=== PATIENT | male | born 1970 | race Caucasian/White ===

== ENCOUNTER 2019-10-18 07:05 | Day surgery (SDC) | payer BC ==
[~2019-10-18] VITALS: Ht 175.3 cm; Wt 85.7 kg
[~2019-10-18 07:05] MED LIST: FENOFIBRATE40 MG PO; KAPSPARGO SPRIN50 MG PO; LEXAPRO10 MG PO; LISINOPRIL20 MG PO; PANTOPRAZOLE SO40 MG PO
--- NOTE | 2019-10-18 07:56 | NUR ---
RECHECKED VS. IV PATENT. PT IS A LITTLE CALMER NOW.
--- NOTE | 2019-10-18 10:09 | NUR ---
10/18/19 1009 Sheets,Blanca 0894 PT ARRIVED TO PACU, VSS, PT WAKES EASILY AND DENIES PAIN AND NAUSEA. PT REORIENTED TO PACU AND ENCOURAGED TO PASS GAS/AIR. 0850 HOB INCREASED AND PT SIPPING WATER. VSS. PT WAKES OFF AND ON AND TALKING TO RN. PT PULLING CAR UP. 0855 PT GETTING DRESSED AND DENIES COCNERNS. 0905 DC INSTRUCTIONS GIVEN AND ALL QUESTIONS ANSWERED.
--- NOTE | 2019-10-19 05:40 | OR ---
[facility] [address], [place] [address] Signed DATE OF OPERATION: 10/18/2019 SURGEON: Yudi Lawson MD PREOPERATIVE DIAGNOSIS: Screening. POSTOPERATIVE DIAGNOSES: 1. Minimal to moderate sigmoid diverticulosis. 2. Minimal internal hemorrhoid x1. PROCEDURE PERFORMED: Colonoscopy without biopsy. ESTIMATED BLOOD LOSS: None. INDICATIONS: Jacy is a 48-year-old gentleman who was asked to see me for his initial screening colonoscopy. He has no lower GI complaints. There is no family history of colon cancer or polyps. I gave Jacy a pamphlet in the office on colonoscopy. He understands the nature of the test along with the risks including, but not limited to gas bloating, crampy abdominal pain, bleeding, perforation requiring surgery, and missed diagnosis. He also understands the need for IV conscious sedation. He had expressed understanding and wished to proceed. PROCEDURE NOTE: Jacy was taken into our endoscopy suite and placed in the left lateral decubitus position. He was given a total of 7 mg of Versed and 150 mcg of fentanyl to cover the case. A digital rectal exam was performed and this was unremarkable. The adult colonoscope was introduced and advanced all around into the cecum under direct visualization of camera without difficulty. His prep was good. We could easily see the appendiceal orifice and the ileocecal valve. The scope was slowly withdrawn. We took pictures throughout for photodocumentation. He had a few diverticula in the sigmoid colon. They were minimal to moderate in size, minimal to moderate in number, and scattered about. The rectum itself was unremarkable. Upon retroflexion of the scope, he had just a small single internal hemorrhoid column. After this, the gas was suctioned out and colonoscope removed. Jacy tolerated the procedure quite well. RECOMMENDATIONS: Electronically Signed By: YUDI LAWSON MD 10/19/19 0540 PATIENT NAME: JACY NG OPERATIVE REPORT DATE OF : 66 REPORT #: [id number] PHYSICIAN: YUDI LAWSON MD PCP: OLGA MARTIN REPORT IS CONFIDENTIAL AND NOT TO BE RELEASED WITHOUT AUTHORIZATION [address] [address] Signed Jacy can follow up in 10 years for repeat colonoscopy. Yudi Lawson MD ALB/MODL /[id number] cc: MD Olga Mike PA-C Copies: YUID LAWSON MD, ERIKA PAC ~ Electronically Signed By: YUDI LAWSON MD 10/19/19 0540 PATIENT NAME: JACY NG OPERATIVE REPORT DATE OF : 66 REPORT #: [id number] PHYSICIAN: YUDI LAWSON MD PCP: OLGA MARTIN PAC REPORT IS CONFIDENTIAL AND NOT TO BE RELEASED WITHOUT AUTHORIZATION
== END 2019-10-18 09:09 | disposition home or self-care (01) ==
LOC: DS 07:05 → OPS 07:05 → DS 08:15 → OPS 09:09
PROVIDERS: Colon & Rectal Surgery
PROC: 0DJD8ZZ Inspection of Lower Intestinal Tract, Via Natural or Artificial Opening Endoscopic (ICD-10-PCS; principal; 2019-10-18 08:15)
DX: Z12.11 Encounter for screening for malignant neoplasm of colon (principal); K64.8 Other hemorrhoids; K57.30 Diverticulosis of large intestine without perforation or abscess without bleeding; I10 Essential (primary) hypertension; F41.9 Anxiety disorder, unspecified; Z79.899 Other long term (current) drug therapy
CPT/HCPCS: 99153; G0500; J2250; J3010; J7121

== ENCOUNTER 2020-06-25 13:49 | Emergency (ER) | payer OTHER, BC ==
[~2020-06-25] VITALS: Ht 175.3 cm; Wt 85.7 kg
--- OUTSIDE RECORDS SUMMARY | ~2020-06-25 | XMS | Encounter Summary ---
Demographics + + + | Address | [address] | | | [place] [address] | + + + | Home Phone | | + + + | Preferred Language | Unknown | + + + | Marital Status | | + + + | Amish Affiliation | 1013 | + + + | Race | White | + + + | Ethnic Group | Not or | + + + Author + + + | Author | [facility] | | | and [place] | + + + | Organization | [facility] | | | and [place] | + + + | Address | Unknown | + + + | Phone | Unavailable | + + + Care Team Providers + +------+ + | Care Dock Worker Name | Role | Phone | + +------+ + | Harsha Sharma MD | PCP | | + +------+ + Encounter Details +--------+ + + + + | Date | Type | Department | Care Team | Description | +--------+ + + + + | 09/20/ | Orders Only | [facility] | Conversion | | | 2018 | | CONVERSION DEP [address] | Transaction, | | | | | [address] | Provider Unknown | | | | | [place], [place] | [phone] | | | | | [address] | | | | | | [phone] | | | +--------+ + + + + Social History + +-------+ +--------+------+ | Tobacco Use | Types | Packs/Day | Years | Date | | | | | Used | | + +-------+ +--------+------+ | Never Smoker | | | | | + +-------+ +--------+------+ + + + | Sex Assigned at | Date Recorded | | | | + + + | Not on file | | + + + documented as of this encounter Plan of Treatment Not on filedocumented as of this encounter Visit Diagnoses Not on filedocumented in this encounter"
--- OUTSIDE RECORDS SUMMARY | ~2020-06-25 | XMS | Encounter Summary ---
Demographics + + + | Address | [address] | | | [place] [address] | + + + | Home Phone | | + + + | Preferred Language | Unknown | + + + | Marital Status | | + + + | Amish Affiliation | 1013 | + + + | Race | White | + + + | Ethnic Group | Not or | + + + Author + + + | Author | [facility] | | | and [place] | + + + | Organization | [facility] | | | and [place] | + + + | Address | Unknown | + + + | Phone | Unavailable | + + + Care Team Providers + +------+ + | Care Insurance Premium Auditor Name | Role | Phone | + +------+ + | Harsha Sharma MD | PCP | | + +------+ + Encounter Details +--------+ + + + + | Date | Type | Department | Care Team | Description | +--------+ + + + + | 12/06/ | Orders Only | [facility] | Soumya Vega, | | | 2019 | | NEUROLOGY [address] | [address] | | | | | [address] | [facility] | | | | | [place], [place] | [place] [address] | | | | | [address] | [phone] | | | | | [phone] | | | +--------+ + + + [...]
--- OUTSIDE RECORDS SUMMARY | ~2020-06-25 | XMS | Encounter Summary ---
Demographics + + + | Address | [address] | | | [place] [address] | + + + | Home Phone | | + + + | Preferred Language | Unknown | + + + | Marital Status | | + + + | Church Affiliation | 1013 | + + + | Race | White | + + + | Ethnic Group | Not or | + + + Author + + + | Author | [facility] | | | and [place] | + + + | Organization | [facility] | | | and [place] | + + + | Address | Unknown | + + + | Phone | Unavailable | + + + Care Team Providers + +------+ + | Care Fixed Route Bus Operator Name | Role | Phone | + +------+ + PCP | Unavailable | + +------+ + Encounter Details +--------+ + + + + | Date | Type | Department | Care Team | Description | +--------+ + + + + | 09/15/ | Hospital | [facility] | Conversion | Pain | | 2017 | Encounter | CONVERSION [address]P [address] | Transaction, | | | | | [address] | Provider Unknown | | | | | [place] | [phone] | | | | | [address] | | | | | | [phone] | | | +--------+ + + + + Social History + +-------+ +--------+------+ | Tobacco Use | Types | Packs/Day | Years | Date | | | | | Used | | + +-------+ +--------+------+ | Never Assessed | | | | | + +-------+ +--------+------+ + + + | Sex Assigned at | Date Recorded | | | | + + + | Not on file | | + + + documented as of this encounter Medications at Time of Discharge + + + +---------+ + + | Medication | Sig | Dispensed | Refills | Start | End Date | | | | | | Date | | + + + +---------+ + + | amLODIPine | | | 0 | 07/23/20 | | | (NORVASC) 5 mg | | | | 17 | | | tablet | | | | | | + + + +---------+ + + | aspirin (ASPIRIN | Take 81 mg by mouth | | 0 | 04/13/20 | | | LOW DOSE) 81 MG | daily. | | | 11 | | | tablet | | | | | | + + + +---------+ + + | atorvaSTATin | | | 0 | 08/21/20 | | | (LIPITOR) 20 mg | | | | 17 | | | tablet | | | | | | + + + +---------+ + + | buPROPion | | | 0 | 09/10/20 | | | (WELLBUTRIN SR) 100 | | | | 17 | | | mg 12 hr tablet | | | | | | + + + +---------+ + + | busPIRone (BUSPAR) | | | 0 | 09/10/20 | | | 5 mg tablet | | | | 17 | | + + + +---------+ + + | clonazePAM | | | 0 | 08/10/20 | | | (KLONOPIN) 0.5 mg | | | | 17 | | | tablet | | | | | | + + + +---------+ + + | lisinopril | Take 40 mg by mouth | | 0 | 12/06/19 | | | (PRINIVIL,ZESTRIL) | daily. | | | 12 | | | 40 MG tablet | Indications: High | | | | | | | Blood Pressure | | | | | + + + +---------+ + + | pantoprazole | | | 0 | 08/21/20 | | | (PROTONIX) 40 mg | | | | 17 | | | tablet | | | | | | + + + +---------+ + + documented as of this encounter Plan of Treatment Not on filedocumented as of this encounter Procedures + +--------+ + + + | Procedure Name | Priori | Date/Time | Associated Diagnosis | Comments | | | ty | | | | + +--------+ + + + | CT MAXILLOFACIAL WO | Routin | 10/13/2012 | | Results for this | | CONTRAST | e | 1:09 PM | | procedure are in the | | | | PST | | results section. | + +--------+ + + + documented in this encounter Results CT Maxillofacial wo Contrast (10/13/2012 1:09 PM PST) + + | Specimen | + + | | + + + + + | Narrative | Performed At | + + + | This is a non-reportable procedure without a radiologist report and | | | is used for image storage only | | + + + + + | Procedure Note | + + | Emre Crowell - 05/03/2019 2:43 AM PDT This is a non-reportable procedure | | without a radiologist report and isused for image storage only | + + documented in this encounter Visit Diagnoses + + | Diagnosis | + + | Pain Generalized pain | + + documented in this encounter"
--- OUTSIDE RECORDS SUMMARY | ~2020-06-25 | XMS | Encounter Summary ---
Demographics + + + | Address | [address] | | | [place] [address] | + + + | Home Phone | | + + + | Preferred Language | Unknown | + + + | Marital Status | | + + + | Yarsanism Affiliation | 1013 | + + + | Race | White | + + + | Ethnic Group | Not or | + + + Author + + + | Author | [facility] | | | and [place] | + + + | Organization | [facility] | | | and [place] | + + + | Address | Unknown | + + + | Phone | Unavailable | + + + Care Team Providers + +------+ + | Care Poultry Breeder Name | Role | Phone | + +------+ + PCP | Unavailable | + +------+ + Encounter Details +--------+ + + + + | Date | Type | Department | Care Team | Description | +--------+ + + + + | 09/15/ | Hospital | [facility] | Conversion | Pain | | 2017 | Encounter | CONVERSION DEP [address] | Transaction, | | | | | [address] | Provider Unknown | | | | | [place] | [phone] | | | | | [address] | | | | | | [phone] | | | +--------+ + + + [...] + +--------+ + + + | CT HEAD WO CONTRAST | Routin | 05/18/2017 | | Results for this | | | e | 1:08 PM | | procedure are in the | | | | PDT | | results section. | + +--------+ + + + documented in this encounter Results CT Head wo Contrast (05/18/2017 1:08 PM PDT) + + | Specimen | + + [...]
--- OUTSIDE RECORDS SUMMARY | ~2020-06-25 | XMS | Encounter Summary ---
Demographics + + + | Address | [address] | | | [place] [address] | + + + | Home Phone | | + + + | Preferred Language | Unknown | + + + | Marital Status | | + + + | Synagogue Affiliation | 1013 | + + + | Race | White | + + + | Ethnic Group | Not or | + + + Author + + + | Author | [facility] | | | and [place] | + + + | Organization | [facility] | | | and [place] | + + + | Address | Unknown | + + + | Phone | Unavailable | + + + Care Team Providers + +------+ + | Care Side Puller Name | Role | Phone | + +------+ + PCP | Unavailable | + +------+ + Encounter Details +--------+ + + + + | Date | Type | Department | Care Team | Description | +--------+ + + + + | 12/12/ | Hospital | [facility] | Alejandra Sams, | Hyposmolality | | 2009 | Encounter | CONVERSION DEP [address] | MD [address] | | | | | [address] | [place] [address] | | | | | [place], [place] | [phone] | | | | | [address] | | | | | | [phone] | | | +--------+ + + + [...] | + +--------+ + + + | MRI BRAIN WO | Routin | 12/12/2009 | | Results for this | | CONTRAST | e | 12:12 PM | | procedure are in the | | | | PDT | | results section. | + +--------+ + + + documented in this encounter Results MRI Brain wo Contrast (12/12/2009 12:12 PM PDT) + + | Specimen | + + | | + + + + + | Narrative | Performed At | + + + | [facility] | | | [facility] [address] | | | , | | | [id number]/RADIOLOGY Patient Name: JACY NG Date of | | | : 1970 Medical Record: [id number] Account: | | | [id number] O/P// Exam Date/Time: | | | 12/12/2009 11:30 A Ordering Provider: ALEJANDRA SAMS Order | | | Detail: 980 / / OMR Exam Description: MRI BRAIN UNENHANCED | | | | | | MRI BRAIN UNENHANCED 12/12/2009 HISTORY A 39-year-old male with | | | headaches, dizziness, and gait imbalance. The patient also has | | | reported weakness of his arms and legs. TECHNIQUE Utilizing a 1.5 | | | Mary MRI unit, standard multiplanar noncontrast sequences through | | | the brain were done. COMPARISON None. FINDINGS No | | | intracranial infarct, hemorrhage, mass, or hydrocephalus is found. A | | | solitary juxtacortical high FLAIR and T2 signal focus seen within the | | | right parietal lobe white matter, measuring 4 mm, image 21, series 7, | | | and image 8, series 3, nonspecific. The corpus callosum, midbrain, | | | danisha, and brainstem appear normal. No cerebellar abnormality is | | | detected. The upper cervical spinal cord signal is noted. Mild | | | bilateral maxillary sinus mucosal thickening is found with small | | | bilateral accompanying maxillary sinus mucus retention cysts, | | | numbering 2 on the right and 1 on the left, largest measuring 12 mm | | | on the left. Trace bilateral mastoid fluid is found. No bone lesions | | | are identified. The visualized intracranial vascular flow voids | | | appear normal. Mild mucosal thickening is also seen involving | | | scattered bilateral ethmoid air cells. IMPRESSION 1. Tiny | | | nonspecific juxtacortical high FLAIR signal focus within the left | | | parietal lobe white matter. This could be related to a migraine | | | headache focus in this patient with a history of migraines. A tiny | | | focus of small vessel ischemic gliosis is another explanation. | | | Clinically correlate for other ricci-white matter disease etiologies, | | | including Lyme disease, auto-immune related vasculitis white | | | matter change, or ADEM, all thought very unlikely. Note this | | | white matter disease pattern does not meet the revised Fowler | | | criteria for multiple sclerosis. 2. Mild bilateral maxillary and | | | ethmoid sinus disease, chronic, as above. Read by | | | SHAN JAVED MD 12/12/2009 01:10 P Electronically Signed by SHAN | | | Nathalia JAVED MD 12/13/2009 09:09 P P DT: | | | 12/13/2009 03:05 P GRACIELA/[facility]/[id number]/ cc: ALEJANDRA SAMS MD | | | SHAN JAVED MD | | + + + + + | Procedure Note | + + | Emre Crowell - 05/13/2019 4:02 PM PDT | | [facility] | | [facility] [address] | | , | | | | [id number]/RADIOLOGY | | | | Patient Name: JACY NG | | Date of : 1970 | | Medical Record: [id number] | | Account: [id number] | | O/P// | | | | | | Exam Date/Time: 12/12/2009 11:30 A | | Ordering Provider: ALEJANDRA SAMS | | Order Detail: 980 / / OMR | | Exam Description: MRI BRAIN UNENHANCED | | | | MRI BRAIN UNENHANCED 12/12/2009 | | | | HISTORY | | A 39-year-old male with headaches, dizziness, and gait imbalance. The | | patient also has reported weakness of his arms and legs. | | | | TECHNIQUE | | Utilizing a 1.5 Mary MRI unit, standard multiplanar noncontrast | | sequences through the brain were done. | | | | COMPARISON | | None. | | | | FINDINGS | | No intracranial infarct, hemorrhage, mass, or hydrocephalus is found. A | | solitary juxtacortical high FLAIR and T2 signal focus seen within the | | right parietal lobe white matter, measuring 4 mm, image 21, series 7, | | and image 8, series 3, nonspecific. The corpus callosum, midbrain, danisha, | | and brainstem appear normal. No cerebellar abnormality is detected. The | | upper cervical spinal cord signal is noted. Mild bilateral maxillary | | sinus mucosal thickening is found with small bilateral accompanying | | maxillary sinus mucus retention cysts, numbering 2 on the right and 1 on | | the left, largest measuring 12 mm on the left. Trace bilateral mastoid | | fluid is found. No bone lesions are identified. The visualized | | intracranial vascular flow voids appear normal. | | | | Mild mucosal thickening is also seen involving scattered bilateral | | ethmoid air cells. | | | | IMPRESSION | | 1. Tiny nonspecific juxtacortical high FLAIR signal focus within the | | left parietal lobe white matter. This could be related to a migraine | | headache focus in this patient with a history of migraines. A tiny | | focus of small vessel ischemic gliosis is another explanation. | | Clinically correlate for other ricci-white matter disease etiologies, | | including Lyme disease, auto-immune related vasculitis white matter | | change, or ADEM, all thought very unlikely. Note this white matter | | disease pattern does not meet the revised Fowler criteria for | | multiple sclerosis. | | 2. Mild bilateral maxillary and ethmoid sinus disease, chronic, as | | above. | | | | | | | | Read by | | SHAN JAVED MD 12/12/2009 01:10 P | | Electronically Signed by | | SHAN JAVED MD 12/13/2009 09:09 P | | | | P | | P | | GRACIELA/subhash/[id number]/ | | cc: ALEJANDRA SAMS MD | | SHAN JAVED MD | + + documented in this encounter Visit Diagnoses + + | Diagnosis | + + | Hyposmolality Hyposmolality and/or hyponatremia | + + documented in this encounter"
--- OUTSIDE RECORDS SUMMARY | ~2020-06-25 | XMS | Clinical Summary ---
Demographics + + + | Address | [address] | | | [place] [address] | + + + | Home Phone | | + + + | Preferred Language | Unknown | + + + | Marital Status | | + + + | Yarsani Affiliation | 1013 | + + + | Race | White | + + + | Ethnic Group | Not or | + + + Author + + + | Author | [facility] | | | and [place] | + + + | Organization | [facility] | | | and [place] | + + + | Address | Unknown | + + + | Phone | Unavailable | + + + Care Team Providers + +------+ + | Care Spool Cleaner Name | Role | Phone | + +------+ + | Harsha Sharma MD | PCP | | + +------+ + Allergies No Known Allergies Medications + + + +---------+------+------+-------+ | Medication | Sig | Dispensed | Refills | Star | End | Statu | | | | | | t | Date | s | | | | | | Date | | | + + + +---------+------+------+-------+ | lisinopril | Take 40 mg by mouth | | 0 | 03/1 | | Activ | | (PRINIVIL,ZESTRIL) | daily. | | | 9/20 | | e | | 40 MG tablet | Indications: High | | | 12 | | | | | Blood Pressure | | | | | | + + + +---------+------+------+-------+ | pantoprazole | | | 0 | 12/0 | | Activ | | (PROTONIX) 40 mg | | | | 3/20 | | e | | tablet | | | | 17 | | | + + + +---------+------+------+-------+ | clonazePAM | | | 0 | 11/2 | | Activ | | (KLONOPIN) 0.5 mg | | | | 2/20 | | e | | tablet | | | | 17 | | | + + + +---------+------+------+-------+ | busPIRone (BUSPAR) | | | 0 | 12/2 | | Activ | | 5 mg tablet | | | | 3/20 | | e | | | | | | 17 | | | + + + +---------+------+------+-------+ | buPROPion | | | 0 | 12/2 | | Activ | | (WELLBUTRIN SR) 100 | | | | 3/20 | | e | | mg 12 hr tablet | | | | 17 | | | + + + +---------+------+------+-------+ | atorvaSTATin | | | 0 | 12/0 | | Activ | | (LIPITOR) 20 mg | | | | 3/20 | | e | | tablet | | | | 17 | | | + + + +---------+------+------+-------+ | amLODIPine | | | 0 | 11/0 | | Activ | | (NORVASC) 5 mg | | | | 4/20 | | e | | tablet | | | | 17 | | | + + + +---------+------+------+-------+ | amitriptyline | take 2 tablets by | 60 | 0 | 03/2 | | Activ | | (ELAVIL) 10 mg | mouth every evening | tablet | | 0/20 | | e | | tablet | | | | 19 | | | + + + +---------+------+------+-------+ | aspirin (ASPIRIN | Take 81 mg by mouth | | 0 | 07/2 | | Activ | | LOW DOSE) 81 MG | daily. 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 | 05/17/2011 | | (PATRICIA-I) | | + + + | GERD (gastroesophageal reflux disease) | 04/13/2011 | + + + | Nondependent alcohol abuse, in remission | 04/13/2011 | + + + | Tobacco user | 04/13/2011 | + + + | Hypertension | 04/13/2011 | + + + | Hyperlipidemia | 04/13/2011 | + + + | Dizziness | 04/13/2011 | + + + | Esophageal motility disorder | 04/13/2011 | + + + Family History + + +------+ + | Medical History | Relation | Name | Comments | + + +------+ + | Stroke | Father | | | + + +------+ + | Stroke | Other | | | + + +------+ + + +------+--------+ + | Relation | Name | Status | Comments | + +------+--------+ + | Father | | | | + +------+--------+ + | Father | | | | + +------+--------+ + | Other | | | | + +------+--------+ + | Other | | | | + +------+--------+ + Social History + +-------+ +--------+------+ | [...] on file | | + + + Last Filed Vital Signs + + + + + | Vital Sign | Reading | Time Taken | Comments | + + + + + | Blood Pressure | 134/90 | 09/20/2017 2:17 PM | | | | | PST | | + + + + + | Pulse | 71 | 09/20/2017 2:17 PM | | | | | PST | | + + + + + | Temperature | - | - | | + + + + + | Respiratory Rate | - | - | | + + + + + | Oxygen Saturation | - | - | | + + + + + | Inhaled Oxygen | - | - | | | Concentration | | | | + + + + + | Weight | 84.6 kg (186 lb 8 | 09/20/2017 2:17 PM | | | | oz) | PST | | + + + + + | Height | 175.3 cm (5' 9") | 09/20/2017 2:17 PM | | | | | PST | | + + + + + | Body Mass Index | 27.54 | 09/20/2017 2:17 PM | | | | | PST | | + + + + + Plan of Treatment + + +-------+ + | Health Maintenance | Due Date | Last | Comments | | | | Done | | + + +-------+ + | Vaccine: | | | | | Dtap/Tdap/Td (1 - | 8 | | | | Tdap) | | | | + + +-------+ + | Vaccine: Zoster (1 | | | | | of 2) | 9 | | | + + +-------+ + | Vaccine: Influenza | | | | | (#1) | 0 | | | + + +-------+ + Results Not on filefrom Last 3 Months
--- OUTSIDE RECORDS SUMMARY | ~2020-06-25 | XMS | Encounter Summary ---
Demographics + + + | Address | [address] | | | [place] [address] | + + + | Home Phone | | + + + | Preferred Language | Unknown | + + + | Marital Status | | + + + | Amish Affiliation | 1013 | + + + | Race | White | + + + | Ethnic Group | Not or | + + + Author + + + | Author | [facility] | | | and [place] | + + + | Organization | [facility] | | | and [place] | + + + | Address | Unknown | + + + | Phone | Unavailable | + + + Care Team Providers + +------+ + | Care Bath Tester Name | Role | Phone | + +------+ + | Harsha Sharma MD | PCP | | + +------+ + Encounter Details +--------+ + + + + | Date | Type | Department | Care Team | Description | +--------+ + + + + | 04/13/ | Orders Only | [facility] | Conversion | | | 2010 | | CONVERSION DEP [address] | Transaction, | | | | | [address] | Provider Unknown | | | | | [place], [place] | [phone] | | | | | [address] | | | | | | [phone] | | | +--------+ + + + [...]
--- OUTSIDE RECORDS SUMMARY | ~2020-06-25 | XMS | Encounter Summary ---
Demographics + + + | Address | [address] | | | [place] [address] | + + + | Home Phone | | + + + | Preferred Language | Unknown | + + + | Marital Status | | + + + | Jainism Affiliation | 1013 | + + + | Race | White | + + + | Ethnic Group | Not or | + + + Author + + + | Author | [facility] | | | and [place] | + + + | Organization | [facility] | | | and [place] | + + + | Address | Unknown | + + + | Phone | Unavailable | + + + Care Team Providers + +------+ + | Care Casing Sewer Name | Role | Phone | + +------+ + | Harsha Sharma MD | PCP | | + +------+ + Encounter Details +--------+ + + + + | Date | Type | Department | Care Team | Description | +--------+ + + + + | 12/05/ | Orders Only | [facility] | Aníbal Hanson MD | | | 2011 | | [facility] | [address] | | | | | [address] | [place] [address] | | | | | [place] [address] | [phone] | | | | | [phone] | | | +--------+ + + + [...]
--- OUTSIDE RECORDS SUMMARY | ~2020-06-25 | XMS | Encounter Summary ---
Demographics + + + | Address | [address] | | | [place] [address] | + + + | Home Phone | | + + + | Preferred Language | Unknown | + + + | Marital Status | | + + + | Congregational Affiliation | 1013 | + + + | Race | White | + + + | Ethnic Group | Not or | + + + Author + + + | Author | [facility] | | | and [place] | + + + | Organization | [facility] | | | and [place] | + + + | Address | Unknown | + + + | Phone | Unavailable | + + + Care Team Providers + +------+ + | Care Painting Supervisor Name | Role | Phone | + +------+ + PCP | Unavailable | + +------+ + Encounter Details +--------+ + + + + | Date | Type | Department | Care Team | Description | +--------+ + + + + | 03/29/ | Hospital | [facility] | Thierno Mukherjee, | Unspecified chest | | 2010 - | Encounter | CONVERSION [address] | MD [address] | pain | | | | [address] | [place], [place] | | | 03/30/ | | [place], [place] | [address] | | | 2010 | | [address] | [phone] | | | | | [phone] | | | +--------+ + + + [...] | + +--------+ + + + | NM MYOCARDIAL | Routin | 03/30/2011 | | Results for this | | PERFUSION MULT SPECT | e | 11:53 AM | | procedure are in the | | | | PDT | | results section. | + +--------+ + + + | ECHO COMPLETE | Routin | 03/30/2011 | | Results for this | | | e | 7:02 AM | | procedure are in the | | | | PDT | | results section. | + +--------+ + + + | XR CHEST 2 VIEWS | Routin | 03/29/2011 | | Results for this | | | e | 9:05 PM | | procedure are in the | | | | PDT | | results section. | + +--------+ + + + documented in this encounter Results NM Myocardial Perfusion Mult SPECT (03/30/2011 11:53 AM PDT) + + | Specimen | + + | | + + + + + | Narrative | Performed At | + + + [facility] [id number] Ph: | | | Patient Name: TRENT NG Date of : | | | 1970 Medical Record: [id number] Account: [id number] | | | Exam Date/Time: 03/30/2011 10:00 Ordering | | | Physician: THIERNO MUKHERJEE Order Detail: [id number] Exam Description: | | | NM MYOCARDIAL GATED S+R | | | TRENT | | | R HERNANDEZ 1970 NM MYOCARDIAL GATED S+R 03/30/2011 10:00 AM | | | HISTORY: Chest pain COMPARISON: None. TECHNIQUE: A same | | | day protocol was used. For the resting portion of the study the | | | patient was injected intravenously with 10.2 mCi of technetium 99m | | | labeled Myoview. Gated SPECT imaging was performed in the supine | | | position. The patient was then stressed on a treadmill according | | | to the Khai protocol for 12:11 achieving 10.6 METs. Resting heart | | | rate rox from 64 beats/min to 131 beats/min which was 73% of the | | | maximum age-predicted heart rate. Due to fatigue, the patient was | | | pharmacologically stressed with 0.4-mg of Regadenoson. At the point | | | of maximum stress, the patient received 39 mCi of technetium 99m | | | labeled Myoview intravenously. Gated SPECT images were acquired in | | | the prone and supine positions. FINDINGS: There are no fixed or | | | reversible areas of perfusion abnormality demonstrated. No | | | dilatation of the left ventricle is present. Normal wall motion and | | | contractility is demonstrated. The following functional data was | | | obtained: End-diastolic volume: 102 mL End-systolic volume: 35 mL | | | Ejection fraction: 66% IMPRESSION: 1. Normal myocardial | | | perfusion study. 2. No evidence of exercise induced ischemia or | | | infarct. 3. Left ventricular ejection fraction is calculated at | | | 66%. | | | 11:39 AM | | + + + + + | Procedure Note | + + | Emre Crowell Conversion - 05/12/2019 1:15 PM PDT | | [facility] | | [facility] [address] | | | | | | Patient Name: TRENT NG | | Date of : 1970 | | Medical Record: [id number] | | Account: [id number] | | | | | | Exam Date/Time: 03/30/2011 10:00 | | Ordering Physician: THIERNO MUKHERJEE | | Order Detail: [id number] | | Exam Description: NM MYOCARDIAL GATED S+R | | | | TRENT NG | | 1970 | | NM MYOCARDIAL GATED S+R | | 03/30/2011 10:00 AM | | | | HISTORY: Chest pain | | | | COMPARISON: None. | | | | TECHNIQUE: | | A same day protocol was used. For the resting portion of the study the | | patient was injected intravenously with 10.2 mCi of technetium 99m labeled | | Myoview. Gated SPECT imaging was performed in the supine position. | | | | The patient was then stressed on a treadmill according to the Khai | | protocol for 12:11 achieving 10.6 METs. Resting heart rate rox from 64 | | beats/min to 131 beats/min which was 73% of the maximum age-predicted heart | | rate. Due to fatigue, the patient was pharmacologically stressed with | | 0.4-mg of Regadenoson. At the point of maximum stress, the patient | | received 39 mCi of technetium 99m labeled Myoview intravenously. Gated | | SPECT images were acquired in the prone and supine positions. | | | | FINDINGS: There are no fixed or reversible areas of perfusion abnormality | | demonstrated. No dilatation of the left ventricle is present. Normal wall | | motion and contractility is demonstrated. | | | | The following functional data was obtained: | | End-diastolic volume: 102 mL | | End-systolic volume: 35 mL | | Ejection fraction: 66% | | | | IMPRESSION: | | 1. Normal myocardial perfusion study. | | 2. No evidence of exercise induced ischemia or infarct. | | 3. Left ventricular ejection fraction is calculated at 66%. | | | | | + + ECHO Complete (03/30/2011 7:02 AM PDT) + + | Specimen | + + | | + + + + + | Narrative | Performed At | + + + | [place] [address] | | | Patient Name: TRENT NG Date of : | | | 1970 Medical Record: [id number] Account: [id number] | | | Exam Date/Time: 03/30/2011 06:34 Performing | | | Physician: Nestor Zhang MD Order Detail: [id number] Exam | | | Description: ECHO CARDIAC ADULT WITH DOPPLER COLOR FLOW | | | | | | INDICATIONS cardiomegaly CONCLUSIONS | | | 1. Resting bradycardia 54bpm. 2. This was a technically good study. | | | 3. Overall left ventricular systolic function is normal with, an EF | | | between 65 - 70 %. 4. The left atrial size is normal. 5. The right | | | atrial size is normal. 6. The aortic valve is trileaflet, and appears | | | anatomically normal. No aortic stenosis or regurgitation. 7. Normal | | | appearing mitral valve. 8. There is trace mitral regurgitation. 9. | | | The tricuspid valve appears structurally normal. 10. Trace tricuspid | | | regurgitation present. 11. Right ventricular systolic pressure | | | (pulmonary artery systolic pressure) is normal at < 35 mmHg. 12. | | | There is no pericardial effusion. 13. The inferior vena cava is | | | normal in size and collapses > 50 % with sniff, indicating normal | | | central venous pressures. 14. Agree with findings. FINDINGS | | | -------- ECG rhythm: Resting bradycardia (HR<60bpm). Study: A | | | 2-dimensional transthoracic echocardiogram with m-mode, spectral and | | | color flow Doppler was perfomed. Study: This was a technically good | | | study. Left Ventricle: Overall left ventricular systolic function is | | | normal with, an EF between 65 - 70 %. Left Ventricle: The left | | | ventricle cavity size is normal. Left Ventricle: Left ventricular | | | wall thickness is normal. Right Ventricle: The right ventricle is | | | mildly enlarged measuring between 3.4 - 3.7 cm. Left Atrium: The left | | | atrial size is normal Left Atrium: , and the LA measures 3.8cm. | | | Right Atrium: The right atrial size is normal Right Atrium: , and the | | | RA measures 4.4cm. Aortic Valve: The aortic valve is trileaflet, and | | | appears anatomically normal. No aortic stenosis or regurgitation. | | | Mitral Valve: Normal appearing mitral valve. Mitral Valve: There is | | | trace mitral regurgitation. Tricuspid Valve: The tricuspid valve | | | appears structurally normal. Tricuspid Valve: Trace tricuspid | | | regurgitation present. Tricuspid Valve: Right ventricular systolic | | | pressure (pulmonary artery systolic pressure) is normal at < 35 mmHg. | | | Pulmonic Valve: The pulmonic valve is normal. Pulmonic Valve: | | | Trace/mild (physiologic) pulmonic regurgitation. Pericardium: There | | | is no pericardial effusion. IVC/Hepatic Veins: The inferior vena | | | cava is normal in size and collapses > 50 % with sniff, indicating | | | normal central venous pressures. Mass: No mass visualized Thrombus: | | | No clot visualized Septum: No ASD observed. Septum: No VSD observed. | | | MEASUREMENTS IVC: 1.44 cm LA Diam: 3.76 cm | | | LA Major: 4.75 cm EDV(Teich): 112.78 ml IVSd: 0.81 cm | | | LVIDd: 4.89 cm LVPWd: 0.77 cm LVOT Diam: 2.17 cm %FS: | | | 40.74 % EF(Teich): 71.35 % ESV(Teich): 32.30 ml IVSs: 0.96 | | | cm LVIDs: 2.90 cm LVPWs: 1.06 cm SV(Teich): 80.48 ml RA | | | Major: 4.35 cm RVIDd: 3.52 cm RVOT Diam: 2.07 cm LVEF MOD | | | A4C: 60.20 % SV MOD A4C: 68.04 ml LVEDV MOD A4C: 113.02 ml | | | LVLd A4C: 7.42 cm LVESV MOD A4C: 44.97 ml LVLs A4C: 5.76 | | | cm LAESV(A-L): 38.03 ml LAESV Index (A-L): 19.01 ml/m2 LAAs | | | A2C: 14.64 cm2 LAESV A-L A2C: 39.64 ml LALs A2C: 4.59 cm | | | LAAs A4C: 14.04 cm2 LAESV A-L A4C: 34.60 ml LALs A4C: 4.83 | | | cm Ao Diam: 3.27 cm AV Cusp: 2.13 cm LA Diam: 3.87 cm | | | LA/Ao: 1.18 %FS: 34.48 % EDV(Teich): 103.18 ml EF(Teich): | | | 63.54 % ESV(Teich): 37.61 ml IVSd: 0.77 cm IVSs: 1.01 | | | cm LVIDd: 4.71 cm LVIDs: 3.08 cm LVPWd: 0.85 cm LVPWs: | | | 1.05 cm SV(Teich): 65.57 ml D-E Excursion: 1.98 cm E-F | | | Bledsoe: 0.09 m/s HR: 54.64 BPM AV maxP.66 mmHg AV | | | meanP.48 mmHg AV Vmax: 1.07 m/s AV Vmean: 0.73 m/s AV | | | VTI: 24.27 cm LESLY Vmax: 3.80 cm2 LESLY (VTI): 3.69 cm2 LVCI | | | Dopp: 2.34 l/minm2 LVCO Dopp: 4.68 l/min HR: 52.18 BPM | | | LVOT maxP.90 mmHg LVOT meanP.23 mmHg LVSI Dopp: | | | 44.87 ml/m2 LVSV Dopp: 89.75 ml LVOT Vmax: 1.10 m/s LVOT | | | Vmean: 0.68 m/s LVOT VTI: 24.16 cm MV A Baljeet: 0.56 m/s MV | | | DecT: 199.96 ms MV E Baljeet: 0.92 m/s MV E/A Ratio: 1.63 MV | | | PHT: 59.68 ms MVA By PHT: 3.68 cm2 MV A Dur: 129.39 ms MV | | | maxP.46 mmHg MV meanP.73 mmHg MV Vmax: 0.93 m/s MV | | | Vmean: 0.35 m/s MV VTI: 22.16 cm MVA (VTI): 4.04 cm2 | | | Septal e': 0.08 m/s Septal E/e': 10.40 P Vein D: 0.44 m/s | | | P Vein S/D Ratio: 1.15 P Vein S: 0.51 m/s HR: 51.68 BPM PV | | | maxP.85 mmHg PV meanP.45 mmHg PV Vmax: 0.46 m/s | | | PV Vmean: 0.31 m/s PV VTI: 11.60 cm RAP: 5 mmHg RVSP: | | | 23.87 mmHg TR maxP.87 mmHg TR Vmax: 2.17 m/s TV A Baljeet: | | | 0.28 m/s TV Dec Bledsoe: 1.59 m/s2 TV Dec Time: 258.73 ms TV | | | E Baljeet: 0.41 m/s TV E/A Ratio: 1.46 Consumer Marketing Analyst: CM | | | Authenticated by: Nestor Zhang MD Report Date/Time: 03-30-2011 | | | 12:01:30 | | + + + + + | Procedure Note | + + | Emre Crowell - 05/12/2019 1:15 PM [facility] | | [place], [place] [address]Du: Patient Name: Efrain NG of : | | 1970Medical Record: [id number]: [id number] | | Date/Time: 03/30/2011 06:34Performing Physician: Nestor Zhang MDOrder Detail: | | Description: ECHO CARDIAC ADULT WITH DOPPLER COLOR | | FLOW INDICATIONS | | -cardiomegaly CONCLUSIONS 1. Resting bradycardia 54bpm.2. This was a | | technically good study.3. Overall left ventricular systolic function is normal with, an | | EF between 65 - 70 %.4. The left atrial size is normal.5. The right atrial size is | | normal.6. The aortic valve is trileaflet, and appears anatomically normal. No aortic | | stenosis or regurgitation.7. Normal appearing mitral valve.8. There is trace mitral | | regurgitation.9. The tricuspid valve appears structurally normal.10. Trace tricuspid | | regurgitation present.11. Right ventricular systolic pressure (pulmonary artery systolic | | pressure) is normal at < 35 mmHg.12. There is no pericardial effusion.13. The inferior | | vena cava is normal in size and collapses > 50 % with sniff, indicating normal central | | venous pressures. 14. Agree with findings. FINDINGS--------ECG rhythm: Resting | | bradycardia (HR<60bpm).Study: A 2-dimensional transthoracic echocardiogram with m-mode, | | spectral and color flow Doppler was perfomed.Study: This was a technically good | | study.Left Ventricle: Overall left ventricular systolic function is normal with, an EF | | between 65 - 70 %.Left Ventricle: The left ventricle cavity size is normal.Left | | Ventricle: Left ventricular wall thickness is normal.Right Ventricle: The right | | ventricle is mildly enlarged measuring between 3.4 - 3.7 cm.Left Atrium: The left atrial | | size is normalLeft Atrium: , and the LA measures 3.8cm.Right Atrium: The right atrial | | size is normalRight Atrium: , and the RA measures 4.4cm.Aortic Valve: The aortic valve | | is trileaflet, and appears anatomically normal. No aortic stenosis or | | regurgitation.Mitral Valve: Normal appearing mitral valve.Mitral Valve: There is trace | | mitral regurgitation.Tricuspid Valve: The tricuspid valve appears structurally | | normal.Tricuspid Valve: Trace tricuspid regurgitation present.Tricuspid Valve: Right | | ventricular systolic pressure (pulmonary artery systolic pressure) is normal at < 35 | | mmHg.Pulmonic Valve: The pulmonic valve is normal.Pulmonic Valve: Trace/mild | | (physiologic) pulmonic regurgitation.Pericardium: There is no pericardial | | effusion.IVC/Hepatic Veins: The inferior vena cava is normal in size and collapses > 50 | | % with sniff, indicating normal central venous pressures.Mass: No mass | | visualizedThrombus: No clot visualizedSeptum: No ASD observed.Septum: No VSD observed. | | MEASUREMENTS IVC: 1.44 cmLA Diam: 3.76 cmLA Major: 4.75 cmEDV(Teich): | | 112.78 mlIVSd: 0.81 cmLVIDd: 4.89 cmLVPWd: 0.77 cmLVOT Diam: 2.17 cm%FS: | | 40.74 %EF(Teich): 71.35 %ESV(Teich): 32.30 mlIVSs: 0.96 cmLVIDs: 2.90 cmLVPWs: | | 1.06 cmSV(Teich): 80.48 mlRA Major: 4.35 cmRVIDd: 3.52 cmRVOT Diam: 2.07 cmLVEF | | MOD A4C: 60.20 %SV MOD A4C: 68.04 mlLVEDV MOD A4C: 113.02 mlLVLd A4C: 7.42 | | cmLVESV MOD A4C: 44.97 mlLVLs A4C: 5.76 cmLAESV(A-L): 38.03 mlLAESV Index (A-L): | | 19.01 ml/m2LAAs A2C: 14.64 [id number] A-L A2C: 39.64 mlLALs A2C: 4.59 cmLAAs A4C: | | 14.04 [id number] A-L A4C: 34.60 mlLALs A4C: 4.83 cmAo Diam: 3.27 cmAV Cusp: 2.13 | | cmLA Diam: 3.87 cmLA/Ao: 1.18%FS: 34.48 %EDV(Teich): 103.18 mlEF(Teich): 63.54 | | %ESV(Teich): 37.61 mlIVSd: 0.77 cmIVSs: 1.01 cmLVIDd: 4.71 cmLVIDs: 3.08 | | cmLVPWd: 0.85 cmLVPWs: 1.05 cmSV(Teich): 65.57 mlD-E Excursion: 1.98 cmE-F | | Bledsoe: 0.09 m/sHR: 54.64 BPMAV maxP.66 mmHgAV meanP.48 mmHgAV Vmax: | | 1.07 m/Isidra Vmean: 0.73 m/Isidra VTI: 24.27 cmAVA Vmax: 3.80 cm2AVA (VTI): 3.69 | | [id number] Dopp: 2.34 l/hnvc9ASAM Dopp: 4.68 l/minHR: 52.18 BPMLVOT maxP.90 | | mmHgLVOT meanP.23 mmHgLVSI Dopp: 44.87 ml/m2LVSV Dopp: 89.75 mlLVOT Vmax: | | 1.10 m/sLVOT Vmean: 0.68 m/sLVOT VTI: 24.16 cmMV A Baljeet: 0.56 m/sMV DecT: 199.96 | | msMV E Baljeet: 0.92 m/sMV E/A Ratio: 1.63MV PHT: 59.68 msMVA By PHT: 3.68 cm2MV A | | Dur: 129.39 msMV maxP.46 mmHgMV meanP.73 mmHgMV Vmax: 0.93 m/sMV Vmean: | | 0.35 m/sMV VTI: 22.16 cmMVA (VTI): 4.04 sm7Sqpzha e': 0.08 m/sSeptal E/e': | | 10.40P Vein D: 0.44 m/sP Vein S/D Ratio: 1.15P Vein S: 0.51 m/sHR: 51.68 BPMPV | | maxP.85 mmHgPV meanP.45 mmHgPV Vmax: 0.46 m/sPV Vmean: 0.31 m/sPV VTI: | | 11.60 cmRAP: 5 mmHgRVSP: 23.87 mmHgTR maxP.87 mmHgTR Vmax: 2.17 m/sTV A | | Baljeet: 0.28 m/sTV Dec Bledsoe: 1.59 m/s2TV Dec Time: 258.73 msTV E Baljeet: 0.41 m/sTV | | E/A Ratio: 1.46 Consumer Marketing Analyst: CMAuthenticated by: Nestor Zhang MDReport Date/Time: | | 03-30-2011 12:01:30 | |Mass: No mass visualized | |Thrombus: No clot visualized | |Septum: No ASD observed. | |Septum: No VSD observed. | | | |MEASUREMENTS | | | |IVC: 1.44 cm | |LA Diam: 3.76 cm | |LA Major: 4.75 cm | |EDV(Teich): 112.78 ml | |IVSd: 0.81 cm | |LVIDd: 4.89 cm | |LVPWd: 0.77 cm | |LVOT Diam: 2.17 cm | |%FS: 40.74 % | |EF(Teich): 71.35 % | |ESV(Teich): 32.30 ml | |IVSs: 0.96 cm | |LVIDs: 2.90 cm | |LVPWs: 1.06 cm | |SV(Teich): 80.48 ml | |RA Major: 4.35 cm | |RVIDd: 3.52 cm | |RVOT Diam: 2.07 cm | |LVEF MOD A4C: 60.20 % | |SV MOD A4C: 68.04 ml | |LVEDV MOD A4C: 113.02 ml | |LVLd A4C: 7.42 cm | |LVESV MOD A4C: 44.97 ml | |LVLs A4C: 5.76 cm | |LAESV(A-L): 38.03 ml | |LAESV Index (A-L): 19.01 ml/m2 | |LAAs A2C: 14.64 cm2 | |LAESV A-L A2C: 39.64 ml | |LALs A2C: 4.59 cm | |LAAs A4C: 14.04 cm2 | |LAESV A-L A4C: 34.60 ml | |LALs A4C: 4.83 cm | |Ao Diam: 3.27 cm | |AV Cusp: 2.13 cm | |LA Diam: 3.87 cm | |LA/Ao: 1.18 | |%FS: 34.48 % | |EDV(Teich): 103.18 ml | |EF(Teich): 63.54 % | |ESV(Teich): 37.61 ml | |IVSd: 0.77 cm | |IVSs: 1.01 cm | |LVIDd: 4.71 cm | |LVIDs: 3.08 cm | |LVPWd: 0.85 cm | |LVPWs: 1.05 cm | |SV(Teich): 65.57 ml | |D-E Excursion: 1.98 cm | |E-F Bledsoe: 0.09 m/s | |HR: 54.64 BPM | |AV maxP.66 mmHg | |AV meanP.48 mmHg | |AV Vmax: 1.07 m/s | |AV Vmean: 0.73 m/s | |AV VTI: 24.27 cm | |LESLY Vmax: 3.80 cm2 | |LESLY (VTI): 3.69 cm2 | |LVCI Dopp: 2.34 l/minm2 | |LVCO Dopp: 4.68 l/min | |HR: 52.18 BPM | |LVOT maxP.90 mmHg | |LVOT meanP.23 mmHg | |LVSI Dopp: 44.87 ml/m2 | |LVSV Dopp: 89.75 ml | |LVOT Vmax: 1.10 m/s | |LVOT Vmean: 0.68 m/s | |LVOT VTI: 24.16 cm | |MV A Baljeet: 0.56 m/s | |MV DecT: 199.96 ms | |MV E Baljeet: 0.92 m/s | |MV E/A Ratio: 1.63 | |MV PHT: 59.68 ms | |MVA By PHT: 3.68 cm2 | |MV A Dur: 129.39 ms | |MV maxP.46 mmHg | |MV meanP.73 mmHg | |MV Vmax: 0.93 m/s | |MV Vmean: 0.35 m/s | |MV VTI: 22.16 cm | |MVA (VTI): 4.04 cm2 | |Septal e': 0.08 m/s | |Septal E/e': 10.40 | |P Vein D: 0.44 m/s | |P Vein S/D Ratio: 1.15 | |P Vein S: 0.51 m/s | |HR: 51.68 BPM | |PV maxP.85 mmHg | |PV meanP.45 mmHg | |PV Vmax: 0.46 m/s | |PV Vmean: 0.31 m/s | |PV VTI: 11.60 cm | |RAP: 5 mmHg | |RVSP: 23.87 mmHg | |TR maxP.87 mmHg | |TR Vmax: 2.17 m/s | |TV A Baljeet: 0.28 m/s | |TV Dec Bledsoe: 1.59 m/s2 | |TV Dec Time: 258.73 ms | |TV E Baljeet: 0.41 m/s | |TV E/A Ratio: 1.46 | | | |Consumer Marketing Analyst: CM | |Authenticated by: Nestor Zhang MD | |Report Date/Time: 03-30-2011 12:01:30 | + + XR Chest 2 Vws (03/29/2011 9:05 PM PDT) + + | Specimen | + + | | + + + + + | Narrative | Performed At | + + + | [facility] [id number] Ph: | | | Patient Name: FARIBADENNIS TRENT Elham Date of : | | | 1970 Medical Record: [id number] Account: [id number] | | | Exam Date/Time: 03/29/2011 19:53 Ordering | | | Physician: MELECIO GREENE Order Detail: [id number] Exam Description: XR | | | CHEST 2 VIEW | | | TRENT | | | R HERNANDEZ XR CHEST 2 VIEW 03/29/2011 7:53 PM History: 40 | | | years. Male. Acute chest pain. Technique: PA and Lateral | | | views of the chest. There is mild cardiomegaly, with a | | | cardiothoracic ratio of 16/31. The pulmonary vasculature is normal. | | | No lung consolidation or pleural effusion visualized. The pulmonary | | | brittny and mediastinal contours are normal. The thoracic aorta is | | | normal, without dilatation or calcification. The vertebral bodies are | | | normal, without compression fracture or degenerative changes. The | | | overall bone density is normal. No focal osteolytic or osteoblastic | | | defect visualized. Conclusions: 1. Mild cardiomegaly. 2. | | | Otherwise negative chest. | | + + + + + | Procedure Note | + + | Emre Crowell - 05/12/2019 1:15 PM PDT | | [facility] | | [facility] [address] | | | | | | Patient Name: TRENT NG | | Date of : 1970 | | Medical Record: [id number] | | Account: [id number] | | | | | | Exam Date/Time: 03/29/2011 19:53 | | Ordering Physician: MELECIO GREENE | | Order Detail: [id number] | | Exam Description: XR CHEST 2 VIEW | | | | TRENT NG | | XR CHEST 2 VIEW | | 03/29/2011 7:53 PM | | | | History: 40 years. Male. Acute chest pain. | | | | Technique: PA and Lateral views of the chest. | | | | There is mild cardiomegaly, with a cardiothoracic ratio of 16/31. The | | pulmonary vasculature is normal. | | | | No lung consolidation or pleural effusion visualized. The pulmonary brittny | | and mediastinal contours are normal. The thoracic aorta is normal, without | | dilatation or calcification. The vertebral bodies are normal, without | | compression fracture or degenerative changes. The overall bone density is | | normal. No focal osteolytic or osteoblastic defect visualized. | | | | Conclusions: | | 1. Mild cardiomegaly. | | 2. Otherwise negative chest. | | | | | + + documented in this encounter Visit Diagnoses + + | Diagnosis | + + | Chest pain, unspecified | + + documented in this encounter"
--- OUTSIDE RECORDS SUMMARY | ~2020-06-25 | XMS | Encounter Summary ---
Demographics + + + | Address | [address] | | | [place] [address] | + + + | Home Phone | | + + + | Preferred Language | Unknown | + + + | Marital Status | | + + + | [employer] Affiliation | 1013 | + + + | Race | White | + + + | Ethnic Group | Not or | + + + Author + + + | Author | [facility] | | | and [place] | + + + | Organization | [facility] | | | and [place] | + + + | Address | Unknown | + + + | Phone | Unavailable | + + + Care Team Providers + +------+ + | Care Rotor Winder Name | Role | Phone | + +------+ + PCP | Unavailable | + +------+ + Encounter Details +--------+ + + + + | Date | Type | Department | Care Team | Description | +--------+ + + + + | 06/04/ | Emergency | [facility] | Trent Espinal | Headache | | 2008 | | [facility]ICAL [facility] | MD [address] | | | | | [facility] | [address] [place], [place] | | | | | [address] [facility] | [address] | | | | | [place], [place] | [phone] | | | | | [address] | | | | | | [phone] | | | +--------+ + + + [...] filedocumented as of this encounter Visit Diagnoses + + | Diagnosis | + + | Headache(784.0) Headache | + + documented in this encounter"
[2020-06-25] MEDS ORDERED: METOPROLOL TART50 MG PO (14:02)
[2020-06-25] MEDS ORDERED: ATORVASTATIN CA20 MG PO (14:02)
[2020-06-25] MEDS ORDERED: LISINOPRIL40 MG PO (14:03)
[2020-06-25] MEDS ORDERED: BUPROPION HCL100 M1 PO (14:03)
== END 2020-06-25 15:49 | disposition home or self-care (01) ==
LOC: ED 13:49
DX: S61.511A Laceration without foreign body of right wrist, initial encounter (principal); S51.811A Laceration without foreign body of right forearm, initial encounter; I10 Essential (primary) hypertension; Z79.899 Other long term (current) drug therapy; W29.8XXA Contact with other powered hand tools and household machinery, initial encounter
CPT/HCPCS: 12001; 90471; 90715; 99282-25

== ENCOUNTER 2020-12-15 08:12 | Inpatient (IN) | payer BC ==
[~2020-12-15] VITALS: Ht 175.3 cm; Wt 86.1 kg
[~2020-12-15 08:12] MED LIST changes: +BUPROPION HCL100 M1 PO; +LISINOPRIL40 MG PO; +METOPROLOL TART50 MG PO
[2020-12-15] MEDS ORDERED: PANTOPRAZOLE SO40 MG PO (08:27)
[2020-12-15] MEDS ORDERED: AMLODIPINE BESYL5 MG PO (08:27)
--- NOTE | 2020-12-15 13:07 | NUR ---
PT ADMITTED TO ROOM 126 FROM ED FOR PANCREATITIS, HYPONATREMIA, ALSO FOUND TO BE COVID + IN ED. PT IS ALERT AND ORIENTED, TRANSFERS SELF TO BED FROM [facility]. DENIES LIGHTHEADEDNESS OR DIZZINESS BUT DOES STATE LAST NIGHT HE WAS DIZZY "I THOUGHT MAYBE FROM NOT SLEEPING." CURRENTLY RATES PAIN 7/10 AND STATES HE IS COMFORTABLE WITH THIS PAIN LEVEL, DESCRIBES PAIN IN EPIGASTRIC AREA ONLY AT THIS TIME. IVF D51/2NS INFUSING AT 1000ML/HR.
--- NOTE | 2020-12-15 14:00 | NUR ---
PT UP TO VOID 425ML YOUNG URINE THEN BACK TO BED, HR STEADY WHILE UP. REQUESTS PAIN MEDICINE, 4MG IV MORPHINE GIVEN. BLOOD DRAW DONE AND MAGNESIUM INFUSION STARTED.
--- NOTE | 2020-12-15 14:30 | NUR ---
AFTER MORPHINE GIVEN PT STATES PAIN LOWER NOW RATING AT 6/10. NO FURTHER REQUESTS.
--- NOTE | 2020-12-15 16:26 | NUR ---
BOTH MAGNESIUM INFUSION COMPLETED NAD NEW ORDER FOR D5 1/2NS WITH 20KCL STARTED AT 85ML/HR. PT UP TO VOID THEN BACK TO BED. RATING PAIN AT 3/10, DENIES NEED FOR PAIN MEDS AT THIS TIME. AWAKE IN BED WATCHING TV, CALL LIGHT IN HAND.
[2020-12-15] MEDS ORDERED: BUSPIRONE HCL5 MG PO (16:37)
[2020-12-15] MEDS ORDERED: VENTOLIN HFA18 GM INH (16:40)
--- NOTE | 2020-12-15 18:35 | NUR ---
PT CALLS FOR PAIN MEDICINE FOR 03/28 EPIGASTRIC PAIN. 4MG IV MORPHINE GIVEN.
--- NOTE | 2020-12-15 19:15 | EKG ---
[facility] [address] [place], [place] [address] Signed Normal sinus rhythm Septal infarct , age undetermined Abnormal ECG No previous ECGs available Confirmed by DENISA BEAULIEU MD ([id number]) on 12/15/2020 7:15:40 PM Electronically Signed By: DENISA BEAULIEU MD 12/15/201914 PATIENT NAME: JACY NG Electrocardiogram DATE OF : 66 PHYSICIAN: DENISA BEAULIEU MD REPORT #: [id number] REPORT IS CONFIDENTIAL AND NOT TO BE RELEASED WITHOUT AUTHORIZATION
--- NOTE | 2020-12-15 20:30 | NUR ---
SHIFT REPORT RECEIVED FROM BECKY GRAY. ASSESSMENT COMPLETED. PT IS ALERT/ORIENTED. REPORTS 6/10 EPIGASTRIC PAIN AND MILD NAUSEA, PT DENIES NEED FOR INTERVENTION AT THIS TIME AND STATES BOTH ARE TOLERABLE. LUNGS CLEAR, RA. HR REGULAR. BOWEL TONES ACTIVE, ABDOMEN MILDLY DISTENDED & TENDER TO PALPATION. SKIN IS GROSSLY INTACT, NO EDEMA NOTED. QUARTER-SIZED CIRCULAR RASH NOTED TO MID BACK. IV PATENT AND INTACT. BLOOD DRAWN ON SECOND ATTEMPT IN RIGHT HAND FOR SCHEDULED LABS, PT TOLERATED WELL. PT UPDATED ON PLAN OF CARE, QUESTIONS ANSWERED. CALL LIGHT WITHIN REACH.
--- NOTE | 2020-12-15 20:41 | NUR ---
PT VOIDED 125ML OF CONCENTRATED URINE INTO URINAL. SAMPLE SENT TO LAB. PT CONTINUES TO DENY REQUESTS. CALL LIGHT WITHIN REACH.
--- NOTE | 2020-12-15 21:21 | NUR ---
DR. BEAULIEU UPDATED ON LAB RESULTS: SODIUM IS 117. PLAN TO CONTINUE IV FLUIDS ORDERED AND RECHECK LABS AT 0200.
--- NOTE | 2020-12-15 22:33 | NUR ---
PT CALLED TO REQUEST PAIN MEDICATION FOR 6/10 EPIGASTRIC PAIN THAT RADIATES TO HIS BACK WITH MOVEMENT. 4MG IV MORPHINE GIVEN. URINAL EMPTIED OF 675ML CONCENTRATED URINE. PT DENIES FURTHER REQUESTS AT THIS TIME.
--- NOTE | 2020-12-16 00:04 | NUR ---
ASSESSMENT COMPLETED. PT REPORTS PAIN IS IMPROVED SINCE RECEIVING MORPHINE. DENIES NAUSEA. REMAINDER OF ASSESSMENT UNCHANGED. IV REMAINS INTACT WITH FLUIDS INFUSING WNL. PT REMINDED OF 0200 LAB DRAW. PT DENIES FURTHER REQUESTS AT THIS TIME, CALL LIGHT WITHIN REACH.
--- NOTE | 2020-12-16 01:17 | NUR ---
PT CALLED TO REQUEST PAIN MEDICATION FOR 8/10 EPIGASTRIC PAIN, 4MG IV MORPHINE ADMINISTERED AT THIS TIME. PT DENIES FURTHER REQUESTS, CALL LIGHT WITHIN REACH.
--- NOTE | 2020-12-16 02:13 | NUR ---
BLOOD DRAWN ON FIRST ATTEMPT FROM RIGHT HAND FOR SCHEDULED LABS. PT TOLERATED WELL. PT ALSO REPORTS THAT HIS PAIN HAS IMPROVED SINCE RECEVING MORPHINE AND STATES HIS IS COMFORTABLE AT THIS TIME. NO FURTHER REQUESTS, CALL LIGHT WITHIN REACH.
--- NOTE | 2020-12-16 03:35 | NUR ---
DR. BEAULIEU NOTIFIED OF PT'S MOST RECENT SODIUM:117. ORDERS RECEIVED TO CHANGE IV FLUIDS TO D5NS @ 85 ML/HR, DONE AT THIS TIME. ASSESSMENT COMPLETED AND UNCHANGED. PT CURRENTLY RATE EPIGASTRIC PAIN 3/10 WHICH HE STATES IS TOLERABLE FOR HIM. PT DENIES FURTHER REQUESTS. URINAL EMPTIED.
--- NOTE | 2020-12-16 06:29 | NUR ---
CHECKED IN ON PT WHO IS AWAKE AND RESTING IN BED. HE DENIES NEED FOR PAIN MEDICATION AT THIS TIME. NO FURTHER REQUESTS AT THIS TIME.
--- NOTE | 2020-12-16 08:25 | NUR ---
IN PATIENT'S ROOM FOR ASSESSMENT, MEDS, VITALS, AND LAB DRAW. NEW IV PLACED IN RIGHT FOREARM. PT TO HAVE REPEAT LABS AT 1400. LAST SODIUM WAS 117 - DISCUSSED THIS WITH PATIENT AND THE EXPECTED HOSPITAL COURSE. PATIENT ASKING GOOD QUESTIONS. PT UP TO BATHROOM TO VOID AND WITH THIS ACTIVITY, HR UP TO 130s. BACK IN BED RESTING, HR LOW 100s. PT ASKING FOR PAIN MEDICATION AND GIVEN MORPHINE ( SEE EMAR). LUNGS HAVE FINE CRACKLES IN LEFT LOWER BASE. ENCOURAGED PATIENT TO DO DEEP BREATHING AND ENCOURAGED IS USE. PT ABLE TO SMELL SLIGHTLY BUT DOES ENDORSE LOSING SMELL AND TASTE RECENTLY. PT GIVEN FRESH ICE CHIPS TO DIP HIS SWAB IN, HOWEVER REMINDED THAT STAYING NPO AT THIS TIME IS NECESSARY. PT AGREEABLE AND EXPRESSES UNDERSTANDING. WILL CONTINUE TO MONITOR.
[2020-12-16] MEDS ORDERED: ATORVASTATIN CA20 MG PO (09:05)
[2020-12-16] MEDS ORDERED: ALLEGRA ALLERG180 MG PO (09:08)
[2020-12-16] MEDS ORDERED: B COMPLEX1 EACH PO (09:08)
[2020-12-16] MEDS ORDERED: VITAMIN D325 MCG PO (09:08)
[2020-12-16] MEDS ORDERED: ONDANSETRON ODT4 MG SL (09:09)
--- NOTE | 2020-12-16 09:10 | NUR ---
MED REC COMPLETE
--- NOTE | 2020-12-16 09:45 | NUR ---
IN PATIENT'S ROOM FOR POSTPARTUM RN. PT STATES HE IS DOING WELL, BUT WILL LIKELY NEED MORE PAIN MEDICATION BEFORE LONG. PT'S BLINDS OPENED UP FOR HIM IN HIS ROOM. IVF CONTINUE AT 85 ML/HR. SODIUM BICARB TABS GIVEN.
--- NOTE | 2020-12-16 10:50 | NUR ---
Spoke with Trent by phone. States he lives in a 1 story home with his . 1 step. He is having some sob today when walking in the room. His has not been covid +, but has been vaccinated. He has not been vacinated. He works at [employer]. Has questions about quarantine, and I requested he follow up with the Health Dept. as they will be calling him. He states his has already been placed on quarantine and works for [employer]. They do have family who can grocery shop for them. I did discuss the delivery programs from the grocery stores in [place]. He does not use any dme and is currently using 02. Plans on dc to home with on dc. I did ask of he is interested in Peer to Peer support call for drinking. He declines at this time and states he can quit on is own when he wants. Denies any other needs. DC to home when cleared medically.
--- NOTE | 2020-12-16 11:56 | NUR ---
ASSESSMENT AND VITALS COMPLETE AT THIS TIME. PT RESTING IN BED. DR. BEAULIEU IN TO SEE PATIENT. PT REQUESTING PAIN MEDICATION. WILL CONTINUE TO MONITOR.
--- NOTE | 2020-12-16 12:20 | NUR ---
DR. BEAULIEU IN ROOM TO SEE PATIENT. ORTHO STATIC VITALS OBTAINED. DR. BEAULIEU WANTING TO OBTAIN AN MRCP OF PATIENT. PATIENT ALSO TO RECEIVE LR BOLUS AND HAVE REPEAT LABS DRAWN AT 1400. PT AGREEABLE TO PLAN OF CARE AND ALL QUESTIONS ANSWERED BEST POSSIBLE.
--- NOTE | 2020-12-16 12:56 | NUR ---
PT HAS TESTED POSITIVE FOR COVID-19. UNABLE TO VISIT IN PERSON DUE TO PRECAUTIONS. WILL FOLLOW ABLE
--- NOTE | 2020-12-16 15:45 | NUR ---
IN PATIENT'S ROOM FOR ASSESSMENT AND VITALS. PATIENT GIVEN PRN PAIN MEDICATION FOR 4/10 PAIN. IVF ARE NOW D5 1/2 NS AT 150 ML/HR. PT CONTINUES TO VOID TO URINAL AND COLOR IS STARTING TO IMPROVE. NEXT LAB DRAW IS AT 1999.
--- NOTE | 2020-12-16 20:31 | NUR ---
SHIFT REPORT RECEIVED FROM BECKY FERNANDO. ASSESSMENT COMPLETED AT THIS TIME. PT IS ALERT/ORIENTED, CIWA:4. REPORTS EPIGASTRIC PAIN 3/10 AND TOLERABLE. LUNGS CLEAR, FINE CRACKLED NOTED IN BASES, RA. HR REGULAR, TACHY 100-120. BOWEL TONES ACTIVE, DENIES NAUSEA AT THIS TIME. SKIN GROSSLY INTACT, NO EDEMA NOTED. IV SITES INTACT AND PATENT. BLOOD DRAWN FROM RIGHT FOREARM IV FOR SCHEDULED LABS. URINAL EMPTIED AND FRESH ICE WATER PROVIDED. PT DENIES REQUESTS AT THIS TIME, PLAN OF CARE DISCUSSED AND QUESTIONS ANSWERED. CALL LIGHT WITHIN REACH.
--- NOTE | 2020-12-16 21:27 | NUR ---
RECEIVED CALL FROM LAB THAT SAMPLE WAS HEMOLYZED. BLOOD DRAWN ON FIRST ATTEMPT FROM RIGHT AC AND SENT TO LAB. AFTERWARD, PT UP TO VOID AND WITH ACTIVITY STARTED TO HAVE STRONG COUGHING FIT. COUGHING INDUCED WRETCHING FOR PT. DR. BEAULIEU CALLED FOR PRN COUGH MEDICINE AND TO INFORM HIM THAT WITH COUGHING, HR INCREASED TO 166, SINUS TACHY. DR. BEAULIEU PLACED ORDERS FOR PRN ROBITUSSIN WITH CODEINE AND SCHEDULED METOPROLOL. PER DR. BEAULIEU, GIVE PHENERGAN AT THIS TIME TO HELP WITH WRETCHING.
--- NOTE | 2020-12-16 22:57 | NUR ---
PT CALLED BECAUSE IV PUMP WAS ALARMING. PT DENIES COMPLAINTS AT THIS TIME. COUGH HAS IMPROVED SINCE RECEIVING PRN MEDICATION. DENIES FURTHER REQUESTS.
--- NOTE | 2020-12-17 00:29 | NUR ---
ASSESSMENT COMPLETED. PT REPORTS 6/10 EPIGASTRIC PAIN, PRN MORPHINE GIVEN. DENIES NAUSEA. TEMP FOUND TO BE 100.7, PRN TYLENOL GIVEN. IV SITES INTACT AND INFUSING WNL. PT AMBULATED TO BATHROOM, AT REST HR: 98, WITH ACTIVITY HR INCREASED TO 105. PT BACK TO BED, DENIES FURTHER REQUESTS AT THIS TIME. CALL LIGHT WITHIN REACH.
--- NOTE | 2020-12-17 02:18 | NUR ---
BLOOD DRAWN FOR SCHEDULED LABS ON FIRST ATTEMPT IN RIGHT HAND, PT TOLERATED WELL. PT REPORTS THAT PAIN HAS IMPROVED TO 3/10 AND IS TOLERABLE. RE-CHECKED TEMP:99.3 AT THIS TIME. PT DENIES REQUESTS OR COMPLAINTS AT THIS TIME, CALL LIGHT WITHIN REACH.
--- NOTE | 2020-12-17 03:16 | NUR ---
CALLED DR. BEAULIEU WITH MOST RECENT SODIUM LAB:124. ORDERS RECEIVED FOR IV FLUIDS: D5LR @ 60ML/HR AND D4 1/2NS @60ML/HR, STARTED AT THIS TIME. URINAL EMPTIED. PT DENIES REQUESTS.
--- NOTE | 2020-12-17 04:25 | NUR ---
ASSESSMENT COMPLETED. PT RATES EPIGASTRIC PAIN 3/10 WHICH HE STATES IS TOLERABLE. DENIES NAUSEA. IV SITES INTACT AND PATENT. PT DENIES REQUESTS OR COMPLAINTS AT THIS TIME. CALL LIGHT WITHIN REACH.
--- NOTE | 2020-12-17 08:33 | NUR ---
IN PATIENT'S ROOM FOR ASSESSMENT, VITALS, LAB DRAW, AND TOPOGRAPHICAL SURVEYOR. PATIENT REPORTS FEELING CHILLED THIS AM AND REQUESTING TO HAVE THE HEAT TURNED UP IN ROOM. PT'S TEMP 98.5. WARM BLANKETS PROVIDED. PT'S LAB DRAWN OBTAINED AND SENT TO LAB. HR 80-90s. PT REPORTS 4/10 PAIN IN LEFT SIDE ABDOMEN WHICH HE STATES IS A LITTLE WORSE THAN YESTERDAY. ACTIVE BOWEL TONES. D5 LR D/C AND IVF ARE NOW JUST D5 1/2 NS AT 60 ML/HR. LOWER LUNG BASES CONTINUE TO HAVE FINE CRACKLES. ENCOURAGED IS USE. PT DENIES SHORTNESS OF BREATH. AM MEDS GIVEN AND PATIENT GIVEN PRN COUGH MEDICINE. PLAN OF CARE DISCUSSED. ALL QUESTIONS ANSWERED BEST POSSIBLE.
--- NOTE | 2020-12-17 10:04 | NUR ---
PATIENT USES LIGHT AND INDICATES NEED TO GET UP TO BATHROOM. HELPED WITH CORDS. DR. BEAULIEU NOW IN TO SEE PATIENT. DISCUSSING PLAN FO CARE.
--- NOTE | 2020-12-17 11:35 | NUR ---
PATIENT TRANSPORTED DOWN TO CT SCAN PER ORDER. PT ABLE TO AMBULATE. SALINE LOCKED FOR TRANSPORT. CONTINUE TO MONITOR.
--- NOTE | 2020-12-17 11:58 | NUR ---
PATIENT BACK FROM CT AND IN CHAIR. IVF CONTINUE TO A TOTAL RATE OF 120 ML/HR. DR. BEAULIEU BACK IN ROOM TO SEE PATIENT AND EXPLAINS THAT PATIENT WILL LIKELY BENEFIT FROM A TRANSFER TO [facility]. PT AGREEABLE TO THIS. AFTER DR. BEAULIEU LEFT ROOM, FURTHER DISCUSSION WITH PATIENT ABOUT THIS TO ENSURE HIS UNDERSTANDING. WILL CONTINUE TO MONITOR AND SEE WHEN TRANSFER WILL HAPPEN.
--- NOTE | 2020-12-17 13:46 | NUR ---
DUE TO PRECAUTIONS, UNABLE TO VISIT IN PERSON. WILL FOLLOW NEEDED
--- NOTE | 2020-12-17 14:52 | NUR ---
No change in plan for dc.
--- NOTE | 2020-12-17 18:05 | NUR ---
DR. BEAULIEU IN ROOM TO SEE PATIENT AGAIN AND TO DISCUSS FINDINGS ON CT SCAN. PT TO BE STARTED ON ANTICOAGULATION DUE TO PORTAL VEIN THROMBUS THAT WAS DISCOVERED TODAY ON CT SCAN. PT AGREEABLE TO PLAN OF CARE. PLATELETS REMAIN LOW AT 105 SO HEPARIN TO BE AVOIDED. PLAN TO TRANSFER PATIENT TO [facility] STILL IN PLACE BUT AWAITING BED CONFIRMATION. IVF CONTINUE - D5 1/2 NS AT 100 ML/HR AND D5 LR AT 100 ML/HR. PT UP BATHROOM TO VOID AND HAVE SMALL BM.
--- NOTE | 2020-12-17 19:19 | NUR ---
PATIENT'S CALLED AND GIVEN AN UPDATE ON HOW HE IS DOING, AND WHAT ALL THE TESTING THAT HAS BEEN PERFORMED INDICATES. ALL QUESTIONS ANSWERED BEST POSSIBLE.
--- NOTE | 2020-12-17 20:30 | NUR ---
SHIFT REPORT RECEIVED FROM BECKY FERNANDO. ASSESSMENT COMPLETED. PT REQUESTS PAIN MEDICATION FOR 3/10 EPIGASTRIC PAIN, PRN MORPHINE ADMINISTERED. DENIES NAUSEA. LUNGS CLEAR, FINE CRACKLES NOTED IN BASES, PT DEMONSTRATED I.S. USE, DENIES SOB AT THIS TIME. BOWEL TONES ACTIVE. IV SITES INTACT AND PATENT. URINAL EMPTIED AND FRESH ICE PROVIDED PER REQUEST. DISCUSSED PLAN OF CARE WITH PT AND ANSWERED QUESTIONS. CALL LIGHT WITHIN REACH, PT DENIES FURTHER REQUESTS AT THIS TIME.
--- NOTE | 2020-12-18 00:20 | NUR ---
PT WOKE WHEN I ENTERED ROOM. ASSESSMENT COMPLETED. PT REPORTS EPIGASTRIC PAIN IS 2/10 AND TOLERABLE. DENIES NAUSEA. NO OTHER CHANGES FROM PREVIOUS ASSESSMENT. FRESH ICE WATER AND ICE CHIPS PROVIDED, URINAL EMPTIED. PT DENIES FURTHER REQUESTS, CALL LIGHT WITHIN REACH.
--- NOTE | 2020-12-18 01:38 | NUR ---
PT CALLED BECAUSE IV PUMP WAS ALARMING. IN TO START NEW BAG OF IV FLUIDS. PT HAD BEEN UP TO BATHROOM, HAD SMALL LOOSE BM. URINAL EMPTIED. PT NOW BACK IN BED AND DENIES REQUESTS OR COMPLAINTS. CALL LIGHT WITHIN REACH.
--- NOTE | 2020-12-18 05:25 | NUR ---
PT AWAKE AND UP TO BATHROOM. IN FOR ASSESSMENT AND LAB DRAW. PT REPORTING 10/10 EPIGASTRIC PAIN, PRN MORPHINE GIVEN. ASSESSMENT COMPLETED, PT'S SKIN IS APPEARING MORE JAUNDICED, OTHERWISE ASSESSMENT IS UNCHANGED. BLOOD DRAW COMPLETED ON FIRST ATTEMPT IN LEFT FOREARM, PT TOLERATED WELL. FRESH ICE WATER AND ICE CHIPS PROVIDED. URINAL EMPTIED. PT NOW SITTING UP IN CHAIR. DENIES REQUESTS AT THIS TIME, CALL LIGHT WITHIN REACH.
--- NOTE | 2020-12-18 07:20 | NUR ---
FULL REPORT RECIEVED FROM MEGHA PENA. ALL QUESTIONS ANSWERED.
--- NOTE | 2020-12-18 07:20 | NUR ---
Update from RN. Pt has a clot in hepatic vein. Pt is awaiting transfer to [facility] when a bed opens.
--- NOTE | 2020-12-18 08:31 | NUR ---
BOTH IV SITES ARE INTACT, NO REDNESS OR SWELLING NOTED, FLUIDS AND FLUSHES INFUSE EASILY. PT IV FLUID RATE CHANGED TO 125 ML/HR PER UPDATED ORDER. PT IS ALERT AND ORIENTED X4, SITTING UP IN THE CHAIR WATCHING TV. PT DENIES NAUSEA AND SOB. PT REPORTS ABD PAIN AT 2/10, DENIES NEED FOR PAIN MEDICATION AT THIS TIME. PT GIVEN CLEAR LIQUID BREAKFAST, FRESH WATER, AND ICE CHIPS. PT VOIDED INTO THE URINAL IN THE BATHROOM. VITALS ARE ALL WNL AT THIS TIME. ASSESSMENT COMPLETED. PT HAS CALL LIGHT WITHIN REACH.
--- NOTE | 2020-12-18 10:44 | NUR ---
PT IS AWAKE AND ALERT X4, SITTING UP IN HIS CHAIR. PT REPORTS 3/10 ABD PAIN AND REQUESTS PAIN MEDICATION, 4 MG IV MORPHINE GIVEN. PT ABLE TO SWALLOW PO POTASSIUM PILLS EASILY. FRESH WATER AND ICE CHIPS BROUGHT INTO PT. PT ABLE TO VOID 850 ML YOUNG URINE. PT DENIES ANY OTHER NEEDS AT THIS TIME.
--- NOTE | 2020-12-18 12:02 | NUR ---
full report given to Asya PENA, all questions answered.
--- NOTE | 2020-12-18 12:30 | NUR ---
PT IN ROOM SITTING IN CHAIR. PT HAS NO PAIN AT THIS TIME WHILE SITTING. URINE OUTPUT IS ADEQUATE, URINE STILL HAS BILI COLOR PRESENT. UPPER LOBES CLEAR, LOWER LOBES HAVE FINE CRACKLES PRESENT. ABD SOUNDS ARE PRESENT AND ABD IS TENDER TO TOUCH AT LUQ AND TOWARD THE MIDDLE. PT HAS JAUNDICE IN EYES AND SKIN. NO OTHER CONCERNS WERE NOTED AT THIS TIME.
--- NOTE | 2020-12-18 13:15 | NUR ---
[facility] WAS CALLED FOR A BED. AT THIS TIME NO BED IS AVAILABLE. NO ESTIMATE WAS GIVEN EITHER.
--- NOTE | 2020-12-18 14:41 | NUR ---
PT IN ROOM. NO NEW CONCERNS WERE NOTED AT THIS TIME.
--- NOTE | 2020-12-18 14:55 | NUR ---
PT STILL UNDER PRECAUTIONS, LEFT G.POST FOR BECKY FERGUSON TO GIVE TO PT. SHE ACKNOWLEDGED, WILL FOLLOW
--- NOTE | 2020-12-18 16:00 | NUR ---
UPPER LOBEDS ARE CLEAR, LOWER LOBES HAVE BILATERAL FINE CRACKLES PRESENT. PT STATED THAT HE HAS SLIGHT SOB WITH ACTIVITY. PAIN IS STILL AT AN ACCEPTABLE LEVEL AT THIS TIME. TEMP INCREASED TO 99.7 F. WILL CONTINUE TO MONITOR. ABD IS TENDER TO TOUCH WAS PREVIOUSLY NOTED. PT HAD NO NEEDS AT THIS TIME. URINE OUTPUT IS ADEQUATE AND SO IS PO INTAKE.
--- NOTE | 2020-12-18 17:20 | NUR ---
CALLED [facility] AGAIN AND I WAS TOLD THIS TIME THAT THERE IS NO BED AVAILABLE FOR ABOUT 4 DAYS. WILL LET MD KNOW.
--- NOTE | 2020-12-18 18:06 | NUR ---
TEMP 100.4 AT THIS TIME. PRN TYLENOL WAS GIVEN. ALSO PRN MORPHINE WAS GIVEN WELL. NO OTHER NEW CONCERNS WERE NOTED.
--- NOTE | 2020-12-18 19:29 | NUR ---
REPORT RECEIVED FROM ARNIE RN, WILL CONTINUE PLAN OF CARE.
--- NOTE | 2020-12-18 20:16 | NUR ---
THIS RN IN TO ASSESS PT AND ADMINISTERED ORDERED MEDICATION. PT SITTING IN BEDSIDE CHAIR ON ROOM AIR ALERT AND ORIENTED. VITALS TAKEN, SCHEDULED LOPRESSOR ADMINISTRED, PT ASSESSED AT THIS TIME. PT REPORTS 3/10 PAIN MOSTLY ON THE LEFT SIDE AND LEFT ABDOMINAL AREA. PT DENIES THE NEED FOR PRN PAIN MEDICATION AT THIS TIME. PT TEMPERATURE 100.1 AT THIS TIME BUT DENIES ANY CHILLS. PT PROVIDED WITH ICE WATER AND CUPS OF ICE PER HIS REQUEST. PT REPORTS NO FURTHER NEEDS AT THIS TIME WHEN ASKED, WILL CONTINUE PLAN OF CARE. CALL LIGHT IN REACH, IVF INFUSING ORDERED.
--- NOTE | 2020-12-18 22:18 | NUR ---
THIS RN IN TO ADMINISTER PRN TYLENOL AND HANG NEW BAG OF PT'S IVF. PT AWAKE AND ALERT SITTING IN BEDSIDE CHAIR WATCHING TV. WARM BLANKETS PROVIDED FOR PT AT THIS TIME. PT REPORTED 3/10 PAIN IN THE SAME REGION WHICH IS MOSTLY IN THE LEFT ABDOMEN AND SIDE. PT HAD ASKED FOR PRN TYLENOL. TEMPERATURE ASSESSED AT THIS TIME AND WAS 100.2, PT DENIED ANY FEELINGS OF BEING HOT OR HAVING CHILLS. PT REPORTS NO SOB AT THIS TIME. PRN TYLENOL ADMINISTERED AND NEW BAG OF IVF STARTED. PT ALSO PROVIDED WTIH MORE ICE AND WATER AT THIS TIME. PT REPORTS NO FURTHER NEEDS WHEN ASKED AT THIS TIME, WILL CONTINUE PLAN OF CARE. CALL LIGHT IN REACH, IVF INFUSING, WILL CONTINUE PLAN OF CARE.
--- NOTE | 2020-12-19 00:01 | NUR ---
THIS RN IN TO ASSESS PT. PT WAS COMING FROM BATHROOM AND STATED HE HAD VOIDED BUT HAD NO BM. PT ABLE TO WALK BACK TO BEDSIDE CHAIR WITH IV POLE AND HAD A STEADY GAIT. PT REPORTED NO SOB AT THIS TIME WHEN ASKED. PT ASSESSED AT THIS TIME AND VITALS TAKEN. PT TEMPERATURE AT 100.1 BUT PT REPORTS NO SYMPTOMS SUCH CHILLS WHEN ASKED. PT ALERT AND ORIENTED X3 AND ON ROOM AIR. PT DENIES ANY NEED FOR PAIN MEDICATION AT THIS TIME RATING HIS LEFT ABDOMINAL/SIDE PAIN AROUND 3/10. PT REPORTS NO FURTHER NEEDS AT THIS TIME WHEN ASKED, WILL CONTINUE PLAN OF CARE. CALL LIGHT IN REACH, IVF INFUSING, PT SITTING IN BEDSIDE CHAIR.
--- NOTE | 2020-12-19 03:30 | NUR ---
THIS RN IN TO CHECK ON PT. PT WAS LAYING IN BED AWAKE AND ALERT. PT STATED HE WAS HAVING SOME GENERAL DISCOMFORT AND PAIN AND REQUESTED PRN MORPHINE AND PRN TYLENOL. THIS RN IN TO ASSESS PT, PT WAS ALERT AND ORIENTED X 3 ON ROOM AIR. VITALS TAKEN, TEMPERATURE WAS 100.3. PT DENIED ANY CHILLS, NAUSEA, OR FEELING HOT. PT ALSO DENIED FEELING ANY SOB OR CHANGES IN BREATHING. PRN TYLENOL AND MORPHINE ADMINISTERED FOR GENERAL DISCOMFORT AND 4/10 PAIN IN THE ABDOMEN, SIDE, AND BACK. PT ASSESSED AT THIS TIME WELL. PT PROVIDED WITH WATER AND REPORTS NO FURTHER NEEDS WHEN ASKED. WILL CONTINUE PLAN OF CARE. CALL LIGHT IN REACH, BED IN LOWEST POSITION, IVF INFUSING ORDERED.
--- NOTE | 2020-12-19 06:30 | NUR ---
THIS RN IN TO DRAW LABS ON PT. PT LAYING IN BED AWAKE AND ALERT, ON ROOM AIR, IVF INFUSING. PT LABS DRAWN AT THIS TIME. PT REPORTS NO SOB, AND STATES HIS PAIN IS TOLERABLE AND RATES IT A 2.5/10 IN THE ABDOMEN/SIDE/BACK. PT PLACED ON TELEMETRY AT THIS TIME. TEMPERATURE ASSESSED AND WAS 99.8 ORAL. PT DENIES ANY CHILLS AT THIS TIME. PT PROVIDED WITH ICE WATER PER HIS REQUEST, NEW BAG OF IVF STARTED WELL. PT REPORTS NO FURTHER NEEDS AT THIS TIME WHEN ASKED, WILL CONTINUE PLAN OF CARE. CALL LIGHT IN REACH, BED IN LOWEST POSITION.
--- NOTE | 2020-12-19 07:15 | NUR ---
FULL REPORT RECIEVED FROM LISA PENA. ALL QUESTIONS ANSWERED.
--- NOTE | 2020-12-19 08:05 | NUR ---
BOTH IV SITES ARE INTACT, NO REDNESS OR SWELLING NOTED AT EITHER SITE, FLUIDS AND FLUSHES INFUSE EASILY. PT DENIES NAUSEA AND SOB, REPORTS ABD PAIN IS 3/10 REFUSES PAIN MEDICATION AT THIS TIME, STATES "THE NEXT TIME YOU COME IN I WILL TAKE SOME PAIN MEDS THEN". PT IS AWAKE AND ALERT X4, COOPERATIVE. PT BREAKFAST BROUGHT IN, WELL FRESH WATER AND ICE CHIPS. PLAN MADE FOR PT TO SHOWER TODAY, ALL SUPPLIES BROUGHT INTO ROOM. PT ASSESSMENT COMPLETED, NO SIGNIFICANT CHANGES FROM REPORTED ASSESSMENT ON NOC SHIFT.
--- NOTE | 2020-12-19 08:45 | NUR ---
[facility] CALLED FOR AN UPDATE ON PT CLINICAL PRESENTATION THIS MORNING. ALL UPDATES GIVEN, ALL QUESTIONS ANSWERED. TRANSFER PERSON STATES "WE MIGHT HAVE A BED FOR HIM TODAY, IT IS ALL VERY DISCHARGE DEPENDENT, WE ARE STILL RUNNING AT A VERY HIGH OCCUPANCY".
--- NOTE | 2020-12-19 09:48 | NUR ---
PT GIVEN 4 MG IV MORPHINE PER HIS REQUEST FOR ABD AND LEFT LATERAL TORSO PAIN OF 4/10. PT REMAINS ALERT AND ORIENTED X4, ABLE TO CARLOS APPROXIMATLY HALF OF HIS CLEAR LIQUID BREAKFAST. PT DOES HAVE GOOD PO INTAKE OF WATER. PT AMBULATES INDEPENDENTLY IN HIS ROOM, CALLS APPROPRIATLY.
--- NOTE | 2020-12-19 11:37 | NUR ---
PT CALLS AND STATES HE IS READY TO TAKE A SHOWER. COVERED BOTH IV SITES WITH PLASTIC AND FOAM TAPE. PT THEN INDEPENDENT INTO BATHROOM TO SHOWER, WITH TELLY OFF. PT DENIES PAIN, NAUSEA, AND SOB AT THIS TIME. PT REMAINS ALERT AND ORIENTED X4. ALL PERSONAL HYGIENE SUPPLIES GIVEN, INCLUDING FRESH CLOTHES. ALL LINENS CHANGED ON THE BED, GARBAGE PICKED UP.
--- NOTE | 2020-12-19 12:25 | NUR ---
Pt cont. to await bed at [facility]. Per 829 report, will try for other placement options.
--- NOTE | 2020-12-19 12:48 | NUR ---
PT UNDER PRECAUTIONS, WILL FOLLOW NEEDED
--- NOTE | 2020-12-19 13:14 | NUR ---
PT SITTING UP IN CHAIR AFTER TAKING HIS SHOWER, HE REPORTS HIS ABD PAIN IS WELL CONTROLED AT THIS TIME. PT DENIES NAUSEA AND SOB. TELLY MONITOR IS NOW OFF PT PER , PT IS NOW MED/SURG STATUS, HOWEVER, WILL STAY IN [address] A HOUSE CONVIENCE. PT IS ABLE TO CARLOS ABOUT 50% OF HIS CLEAR LIQUID LUNCH. FULL ASSESSMENT COMPLETED. NO NOTABLE CHANGES. PT REPORTS FEELING BETTER AFTER A SHOWER. BILAT IV SITES ARE INTACT, NO REDNESS OR SWELLING NOTED, FLUIDS AND FLUSHES INFUSE EASILY AT BOTH SITES. FRESH ICE CHIPS BROUGHT PER PT REQUEST.
--- NOTE | 2020-12-19 15:41 | NUR ---
PT SITTING UP IN THE CHAIR, CALL LIGHT IS WITHIN REACH. PT BAG OF IV FLUIDS REPLACED IT IS EMPTY. PT REMAINS ALERT AND ORIENTED X4, VITALS ARE ALL WNL. IV SITES ARE INTACT, NO REDNESS OR SWELLING NOTED, FLUIDS AND FLUSHES INFUSE EASILY. PT DENIES NEEDS AT THIS TIME.
--- NOTE | 2020-12-19 17:17 | NUR ---
PT GIVEN CLEAR LIQUID TRAY FOR DINNER AND FRESH ICE CHIPS. PT C/O 11/26 HEADACHE, 325MG PO TYLENOL GIVEN. PT STILL PRODUCING LARGE AMOUNTS OF YOUNG URINE. PT DENIES NAUSEA AND SOB. DENIES ANY OTHER NEEDS AT THIS TIME. HE IS SITTING UP IN THE CHAIR WITH CALL LIGHT, PT CALLS APPROPRIATLY.
--- NOTE | 2020-12-19 18:02 | NUR ---
PT UPDATED ON STATUS OF TRANSFER TO [facility] AND ACCEPTING PHYSICIAN ELEONORA GARCAI MD.
--- NOTE | 2020-12-19 18:31 | NUR ---
PT ABLE TO HAVE A SMALL BM.
--- NOTE | 2020-12-19 19:38 | NUR ---
REPORT RECEIVED FROM DAY SHIFT RN. CALL FROM [facility] WITH [facility] FOR PT, PT AND HIS INFORMED. PT SITTING UP IN CHAIR, DENIES NEEDS AT THIS TIME, STATES HE IS COMFORTABLE. REPORT CALLED TO NAIMA PENA AT [facility].
--- NOTE | 2020-12-19 20:19 | NUR ---
IN TO GET PRE TRANSFER VITALS, PT PROVIDED WITH EXTRA WATER FOR TRIP, NO FURTHER NEEDS
--- NOTE | 2020-12-19 20:58 | NUR ---
PT TRANSFERRED TO IRON WITH PFD.
== END 2020-12-19 20:59 | disposition short-term general hospital (02) | DRG 438 ==
LOC: ED 08:12 → CCU 12:13
PROVIDERS: ADMIT Internal Medicine; ATTEND Internal Medicine
DX: K85.10 Biliary acute pancreatitis without necrosis or infection (principal); U07.1 COVID-19; I81 Portal vein thrombosis; K72.00 Acute and subacute hepatic failure without coma; E87.1 Hypo-osmolality and hyponatremia; R65.10 Systemic inflammatory response syndrome (SIRS) of non-infectious origin without acute organ dysfunction; E87.2 Acidosis; K80.50 Calculus of bile duct without cholangitis or cholecystitis without obstruction; I10 Essential (primary) hypertension; K21.9 Gastro-esophageal reflux disease without esophagitis; F32.9 Major depressive disorder, single episode, unspecified; E83.42 Hypomagnesemia; D69.6 Thrombocytopenia, unspecified; K70.10 Alcoholic hepatitis without ascites; Z79.899 Other long term (current) drug therapy
CPT/HCPCS: 70210; 71045; 74160; 74170; 74183; 76705; 80048; 80053; 80076; 81001; 82248; 82977; 83605; 83690; 83735; 83930; 83935; 84484; 84550; 85025; 85379; 85610; 85730; 93005; 93010; A9577; C9113; C9803; J1650; J1652; J2270; J2550; J3475; J3480; J7042; J7121; Q9967; U0003

== ENCOUNTER 2021-02-26 20:29 | Emergency (ER) | payer BC ==
[~2021-02-26] VITALS: Ht 175.3 cm; Wt 85.7 kg
[~2021-02-26 20:29] MED LIST changes: +ALLEGRA ALLERG180 MG PO; +AMLODIPINE BESYL5 MG PO; +ATORVASTATIN CA20 MG PO; +B COMPLEX1 EACH PO; +BUSPIRONE HCL5 MG PO; +ONDANSETRON ODT4 MG SL; +VENTOLIN HFA18 GM INH; +VITAMIN D325 MCG PO
[2021-02-26] MEDS ORDERED: ALFUZOSIN HCL10 MG PO (20:54)
[2021-02-26] MEDS ORDERED: XARELTO20 MG PO (20:54)
[2021-02-26] MEDS ORDERED: GABAPENTIN100 MG PO (20:55)
== END 2021-02-26 23:05 | disposition home or self-care (01) ==
LOC: ED 20:29
DX: R10.31 Right lower quadrant pain (principal); I10 Essential (primary) hypertension; Z79.899 Other long term (current) drug therapy
CPT/HCPCS: 74177; 80053; 81001; 83690; 85025; 99284-25

== ENCOUNTER 2023-08-03 02:05 | Emergency (ER) | payer OTHER ==
[~2023-08-03] VITALS: Ht 175.3 cm; Wt 85.7 kg
[~2023-08-03 02:05] MED LIST changes: +ALFUZOSIN HCL10 MG PO; +GABAPENTIN100 MG PO; +XARELTO20 MG PO
[2023-08-03 04:50] LABS: BASOPHILS 0.7 % (0-2); EOSINOPHILS 2.3 % (0-6); HEMOGLOBIN 13.4 g/dL (12.0-18.0); LYMPHOCYTES 33.1 % (24-44); MCH 29.2 (27-36); MCHC 35.1 g/dl (30-36); NEUTROPHILS 53.9 % (39-80); PLATELET COUNT 235 K/uL (140-440); RBC 4.58 M/ul (4.3-5.7); RDW 14.1 (10.5-15.0)
[2023-08-03 04:51] LABS: INR 1.03 (0.80-1.30)
[2023-08-03 04:52] LABS: ALBUMIN 4.1 g/dL (3.4-5.0); ALBUMIN/GLOBULIN RATIO 1.41 (1.1-2.4); ANION GAP 13.6 (7-21); BILIRUBIN, TOTAL 0.5 ng/dL (0.2-1.0); BUN/CREATININE RATIO 6.02 (6.0-28.6); CALCIUM 8.5 mg/dL (8.5-10.1); CREATININE, SERUM 0.83 mg/dL (0.70-1.30); MAGNESIUM 1.7 mg/dL (1.8-2.4); POTASSIUM 2.6 mmol/L (3.5-5.1)
[2023-08-03 05:50] VITALS: BP 99/62
--- NOTE | 2023-08-03 22:22 | EKG ---
[facility] [address] [place] [address] Signed Sinus bradycardia Otherwise normal ECG When compared with ECG of 15-DEC-2020 08:19, Vent. rate has decreased Confirmed by Jacy Byrne MD () on 08/03/2023 10:22:09 PM Electronically Signed By: JACY BYRNE MD [id number] PATIENT NAME: JACY NG Electrocardiogram DATE OF : 66 PHYSICIAN: JACY BYRNE MD REPORT #: [id number] REPORT IS CONFIDENTIAL AND NOT TO BE RELEASED WITHOUT AUTHORIZATION
== END 2023-08-03 05:50 | disposition home or self-care (01) ==
LOC: ED
PROVIDERS: Family Medicine
DX: R07.89 Other chest pain (principal); I10 Essential (primary) hypertension; Z79.899 Other long term (current) drug therapy
CPT/HCPCS: 36415; 71045; 80053; 83735; 83880; 84484; 85025; 85379; 85610; 93005; 93010; A9270; J3480